=== PATIENT | male | born 1960 | race American Indian/Alaskan Native ===

== ENCOUNTER 2023-04-14 22:54 | Emergency (ER) | payer OTHER ==
[~2023-04-14] VITALS: Ht 175.3 cm; Wt 77.1 kg
[2023-04-15 00:45] VITALS: BP 120/80
== END 2023-04-15 01:38 | disposition home or self-care (01) ==
LOC: ER 22:54
DX: S90.112A Contusion of left great toe without damage to nail, initial encounter (principal); M25.472 Effusion, left ankle; G40.909 Epilepsy, unspecified, not intractable, without status epilepticus; I25.2 Old myocardial infarction; F17.200 Nicotine dependence, unspecified, uncomplicated; X58.XXXA Exposure to other specified factors, initial encounter
CPT/HCPCS: 73610; 93971; 96374; 99284-25; J1885